=== PATIENT | female | born 1975 ===

== ENCOUNTER 2018-05-21 05:10 | Inpatient (IN) | payer OTHER ==
[2018-05-21] VITALS (12 sets, daily range): BP systolic 105–127; BP diastolic 60–85
[~2018-05-21] VITALS: Ht 157.5 cm; Wt 71.2 kg
[~2018-05-21 05:10] MED LIST: NKM
[2018-05-21] MEDS ORDERED: AMLODIPINE BES2.5 MG ORAL (06:14)
[2018-05-21] MEDS ORDERED: ZANTAC150 MG ORAL (06:14)
[2018-05-21] MEDS ORDERED: AMOXICILLIN500 MG ORAL (06:14)
[2018-05-21] MEDS ORDERED: SIMVASTATIN10 MG ORAL (06:14)
[2018-05-21] MEDS ORDERED: Lidocaine 1% MPF 10mg/ml 5ml ONE (06:33)
[2018-05-21] MEDS ORDERED: Midazolam 2mg/2ml Inj ONE (06:33)
[2018-05-21] MEDS ORDERED: fentaNYL 100 mcg/2 mL IV ONE (06:33)
[2018-05-21] MEDS ORDERED: Ketorolac 30mg Inj ONE (06:38)
[2018-05-21] MEDS ORDERED: Succinylcholine 20mg/ml 10ml vial ONE (06:50)
[2018-05-21] MEDS ORDERED: Zemuron 50mg/5ml Inj IV ONE (06:50)
[2018-05-21] MEDS ORDERED: Vancomycin 1gm inj IVPB ONE (06:57)
[2018-05-21] MEDS ORDERED: Thrombin 5000 units TOPIC ONE (06:58)
[2018-05-21] MEDS ORDERED: Bacitracin 50000 Units Vial ONE (06:58)
[2018-05-21] MEDS ORDERED: Gelfoam Size TOPIC ONE (06:58)
[2018-05-21] MEDS ORDERED: Bupivacaine w/Epi 0.5% 30ml Vial INJ ONE ×2 (06:58→08:07)
[2018-05-21] MEDS ORDERED: NS Irrig 1000ml ONE (07:00)
[2018-05-21] MEDS ORDERED: ceFAZolin sod 2 GM in D5W 110 ML IVPB ONE (07:00)
[2018-05-21] MEDS ORDERED: Sterile Water Irrig 1000ml IRRIG ONE (07:00)
[2018-05-21] MEDS ORDERED: Neostigmine 1mg/ml 10ml Inj ONE (07:00)
[2018-05-21] MEDS ORDERED: Propofol 1,000mg/ 100ml btl IV ONE (07:00)
[2018-05-21] MEDS ORDERED: LR 1000ml ONE (07:00)
--- NOTE | 2018-05-21 07:14 | Anethesia Preoperative Eval ---
Anesthesia Pre-op PMH/ROS General Date of Evaluation: May 21, 2018 Time of Evaluation: 07:11 Anesthesiologist: Lupillo ASA Score: ASA 2 Mallampati Score Class I : Soft palate, uvula, fauces, pillars visible Class II: Soft palate, uvula, fauces visible Class III: Soft palate, base of uvula visible Class IV: Only hard plate visible Mallampati Classification: Class II Surgeon: Migel Diagnosis: Lumbar radiculopathy Surgical Procedure: Lumbar laminotomy with decompression Anesthesia History: none Family History: no anesthesia problems Allergies: Coded Allergies: No Known Allergies (Unverified , 05/21/18) Patient NPO?: Yes NPO Date: May 20, 2018 NPO Time: 193 Past Medical History Cardiovascular: Reports: HTN; Denies: CAD, SC, valve dz, arrhythmia, other Pulmonary: Denies: asthma, COPD, CHERYL, other Gastrointestinal/Genitourinary: Reports: GERD - mild; Denies: CRI, ESRD, other Neurologic/Psychiatric: Reports: depression/anxiety; Denies: dementia, CVA, TIA, other Endocrine: Denies: DM, hypothyroidism, steroids, other HEENT: Denies: cataract (L), cataract (R), glaucoma, [place] (L), [place] (R), other Hematology/Immune: Denies: anemia, DVT, bleeding disorder, other Musculoskeletal/Integumentary: Denies: OA, RA, DJD, DDD, edema, other PMH Narrative: as above PSxH Narrative: T&A, excision of pituitary adenoma, hernia repair Anesthesia Pre-op Phys. Exam Physician Exam Last Vital Signs Date Time Temp Pulse Resp B/P (MAP) Pulse Ox O2 Delivery O2 Flow Rate FiO2 05/21/18 06:35 97.9 67 20 114/78 (90) 98 05/21/18 06:00 Room Air Constitutional: NAD Neurologic: CN 2-12 intact Cardiovascular: RRR, no M/R/G Respiratory: CTA Gastrointestinal: S/NT/ND Airway Exam Mallampati Score: Class II MO: full Neck: flexible ROM: full Teeth: missing Dentures: no upper, no lower Anesthesia Pre-op A/P Labs see chart Urine Test Test 05/21/18 05:30 Urine HCG, Qualitative Negative (NEGATIVE) Studies Pre-op Studies: EKG - NSR Risk Assessment & Plan Assessment: ASA 2 Plan: GA with ETT PONV prevention neuromonitoring Status Change Before Surgery: No Pre-Antibiotics Drug: Ancef 2gr. Given Within 1 Hr of Incision: Yes Time Given: 07:56 Bernadro Wesley MD May 21, 2018 07:14
--- NOTE | 2018-05-21 07:27 | Brief Operative Note ---
Immediate Post Operative Note Operative Note Chief Complaint: leg pain radicular and lbp Pre-op Diagnosis: L5S1 herniation Procedure: Left sided L5S1 microdiscectomy hemilaminotomy foraminotomy Post-op Diagnosis: same as pre-op Findings: consistent w/pre-op dx studies Surgeon: Migel Crate Repairer: Elliot Anesthesiologist: AMAURI Anesthesia: general Specimen: none Complications: none Condition: stable Fluids: IVF Estimated Blood Loss: minimal Drains: none Implant(s) used?: No Immanuel Lainez MD May 21, 2018 07:27
--- NOTE | 2018-05-21 07:27 | Pre-Procedure Note/Attestation ---
Pre-Procedure Note/Attestation Complete Prior to Procedure Planned Procedure: left Procedure Narrative: Left sided L5S1 microdiscectomy hemilaminotomy foraminotomy Indications for Procedure Pre-Operative Diagnosis: L5S1 herniation Attestation I attest that I discussed the nature of the procedure; its benefits; risks and complications; and alternatives (and the risks and benefits of such alternatives ), prior to the procedure, with the patient (or the patient's legal denial management representative). I attest that, if there was a reasonable possibility of needing a blood transfusion, the patient (or the patient's legal denial management representative) was given the [facility] standardized written summary, pursuant to the Topher Yudelka Blood Safety Act ([place] Health and Safety Code # 1645, as amended). I attest that I re-evaluated the patient just prior to the surgery and that there has been no change in the patient's H&P, except as documented below: Immanuel Lainez MD May 21, 2018 07:27
[2018-05-21] MEDS ORDERED: LR 1000ml 1,000 ML IVLG SCH (08:03)
[2018-05-21] MEDS ORDERED: Morphine Sulfate 10mg/ml Inj ONE (08:08)
[2018-05-21] MEDS ORDERED: Sodium Chloride 10ml vial INJ ONE (08:09)
[2018-05-21] MEDS ORDERED: Glycopyrrolate 0.2mg/ml 1ml Vial ONE (08:09)
[2018-05-21] MEDS ORDERED: DiphenhydrAMINE 50mg/ml Inj IVP PRN (08:15)
[2018-05-21] MEDS ORDERED: fentaNYL 100 mcg/2 mL IV PRN (08:15)
[2018-05-21] MEDS ORDERED: Midazolam 2mg/2ml Inj IVP PRN (08:15)
[2018-05-21] MEDS ORDERED: Meperidine 50mg/ml Inj(FOR RIGORS ONLY) IV PRN (08:15)
[2018-05-21] MEDS ORDERED: Acetaminophen (Non formulary) 100 ML IV ONE (08:15)
[2018-05-21] MEDS ORDERED: Metoclopramide 10mg/2ml Inj IVP PRN ×2 (08:15→11:00)
[2018-05-21] MEDS ORDERED: Ketorolac 30mg Inj IV PRN (08:15)
--- NOTE | 2018-05-21 09:01 | Immediate Post-Op Evaluation ---
Immediate Post-Op Evalulation Immediate Post-Op Evalulation Procedure: L5-S1 microdiscectomy with laminotomy and decompression Date of Evaluation: May 21, 2018 Time of Evaluation: 08:59 IV Fluids: 800 Blood Products: none Estimated Blood Loss: <50 Urinary Output: none Blood Pressure Systolic: 118 Blood Pressure Diastolic: 61 Pulse Rate: 88 Respiratory Rate: 20 O2 Sat by Pulse Oximetry: 99 Temperature (Fahrenheit): 97.6 Pain Score (1-10): 1 Nausea: No Vomiting: No Complications none Patient Status: reacts, patent, extubated, none Hydration Status: adequate Bernardo Wesley MD May 21, 2018 09:01
[2018-05-21] MEDS ORDERED: Morphine Sulfate 4mg/ml Inj (IV/IM USE ONLY) IV PRN ×2 (11:00)
[2018-05-21] MEDS ORDERED: HYDROmorphone 1mg/ml Carpuject IVP PRN (11:00)
[2018-05-21] MEDS ORDERED: HYDROcodone/Acetamin 7.5/325 tab ORAL PRN ×2 (11:00)
[2018-05-21] MEDS ORDERED: Milk of Magnesia 30ml Ud ORAL PRN (11:00)
[2018-05-21] MEDS ORDERED: Morphine Sulfate 2mg/ml Inj IV PRN (11:00)
[2018-05-21] MEDS ORDERED: Naloxone 0.4mg/ml Inj IVP PRN (11:00)
[2018-05-21] MEDS: NS w/KCl 20mEq 1,000 ML IV SCH ×2 (11:00→21:25)
[2018-05-21] MEDS ORDERED: Norco 5mg/325mg tab ORAL PRN (11:00)
[2018-05-21] MEDS: Dexamethasone 4mg/ml vial IVP SCH ×3 (11:48→23:42)
--- NOTE | 2018-05-21 11:53 | Diagnostic Imaging Report ---
INDICATION: Pain, intraoperative TECHNIQUE: Intraoperative imaging Fluoroscopy time: 4.9 seconds Total dose: 1.67 mGy Total number of images: One COMPARISON: None FINDINGS: Single crosstable lateral image demonstrates a localizer tool projected posterior to what is presumably the L5-S1 disc IMPRESSION: Intraoperative imaging, as described
[2018-05-21] MEDS ORDERED: Chloraseptic Spray 20mL Bottle ORAL PRN (12:00)
[2018-05-21] MEDS: ceFAZolin sod 1 GM in D5W 55 ML IV SCH ×2 (15:33→23:42)
--- NOTE | 2018-05-21 15:49 | General Progress Note ---
Assessment/Plan Assessment/Plan L5S1 herniation Left sided L5S1 microdiscectomy hemilaminotomy foraminotomy PLAN 1. incentive spirometry 2. SCD 3. PT evaluation and therapy 4. Hydration 5. Pain management 6. discharge once stable with outpatient follow up Subjective Allergies: Coded Allergies: No Known Allergies (Unverified , 05/21/18) Subjective asked to follow up postop Objective Last 24 Hour Vital Signs Date Time Temp Pulse Resp B/P (MAP) Pulse Ox O2 Delivery O2 Flow Rate FiO2 05/21/18 11:45 97.1 69 19 115/73 (87) 100 05/21/18 10:47 98.7 71 18 115/73 (87) 100 05/21/18 10:25 Nasal Cannula 3.0 Nasal Cannula 3.0 05/21/18 09:50 97.0 75 20 113/61 100 Nasal Cannula 3 05/21/18 09:26 76 20 118/60 100 Simple Mask 8 05/21/18 09:19 77 20 124/66 100 Simple Mask 8 05/21/18 09:15 81 20 119/65 100 Simple Mask 8 05/21/18 09:05 85 20 119/63 100 Simple Mask 8 05/21/18 09:01 88 20 99 05/21/18 08:57 101 20 118/61 100 Simple Mask 8 05/21/18 08:52 98.0 102 20 105/64 100 Simple Mask 8 05/21/18 06:35 97.9 67 20 114/78 (90) 98 05/21/18 06:00 Room Air Laboratory Tests 05/21/18 05:30: Urine HCG, Qualitative Negative Height (Feet): 5 Height (Inches): 2.00 Weight (Pounds): 157 Objective WDWN NAD clear breath sounds bilaterally without rhonchi or wheeze [id number] without MRG NABS nontender no HSM no CCE nonfocal Werner Carrion MD May 21, 2018 15:49
[2018-05-21] MEDS: Docusate 100mg cap ORAL SCH (17:36)
[2018-05-22] VITALS: BP 112/67
--- NOTE | 2018-05-22 02:15 | Operative Note - Dictated ---
DATE OF OPERATION: 05/21/2018 NOTE: "POOR AUDIO QUALITY/DISTORTED AUDIO" SURGEON: Immanuel Lainez MD, Orthopaedic Spine Surgeon. PAYROLL BENEFITS ADMINISTRATOR SURGEON: ANESTHESIA: General endotracheal anesthesia. PREOPERATIVE DIAGNOSES: 1. Intractable back pain. 2. Intractable leg pain. 3. Worsening radiculopathy. 4. Weakness. 5. Herniated nucleus pulposus, L5-S1 herniation. 6. Neural foraminal stenosis, L5-S1. POSTOPERATIVE DIAGNOSES: 1. Intractable back pain. 2. Intractable leg pain. 3. Worsening radiculopathy. 4. Weakness. 5. Herniated nucleus pulposus, L5-S1 herniation. 6. Neural foraminal stenosis, L5-S1. PROCEDURES PERFORMED: 1. Left-sided L5-S1 microdiscectomy. 2. L5-S1 hemilaminotomy, foraminotomy, and medial facetectomy. 3. L5-S1 neural foraminotomy through a transpedicular intraforaminal approach. 4. Use of intraoperative microscope. 5. Supervision and interpretation of intraoperative fluoroscopy. 6. Supervision and interpretation of somatosensory-evoked potential and free-running EMG monitoring. ESTIMATED BLOOD LOSS: Less than 100 mL. COMPLICATIONS: None. INDICATIONS FOR THE PROCEDURE: Amy has history of intractable back and neck pains which developed as a result of a recent impact which was well-documented on charts. The actual pains which she has had and developed have been a result of her impact directly despite the course of conservative measures. Amy Perez developed intractable pain while on November 25, 2015, she was at the walking around the , she slipped to the right side and landed firmly on her bottom and due to the impact, . She was afterwards assisted by a bystander . Amy presents for intractable back pain and radiculopathy. The patient tried and failed a prolonged course of conservative management, including but not limited to chiropractic therapy, physical therapy, nonsteroidal anti-inflammatory drugs, medication, ice packs as well as epidural injection. Despite these therapies, the patient still developed recalcitrant pain and elected for definitive management in the form of left-sided L5-S1 microdiscectomy, L5-S1 hemilaminotomy, foraminotomy, and medial facetectomy, and L5-S1 neural foraminotomy through a transpedicular intraforaminal approach. We had a long discussion with her regarding definitive surgical treatment options. The patient's MRI demonstrated herniated nucleus pulposus with L5-S1 herniation and neural foraminal stenosis at L5-S1 and as a result, I felt she would benefit from the discectomy as well as neural foraminotomy at this level. We had a long discussion with the patient regarding the risks, alternatives, and benefits of surgery. Our description of the risks included a discussion in person as well as a signed consent which detailed all pertinent risks and the procedure itself. Briefly, our discussion included but was not limited to infection, bleeding, pseudarthrosis, spinal cord injury, neurovascular injury, dural tear, CSF leak, neuropathy, paralysis, permanent weakness/drop foot, paresthesias blindness, palsy, and weakness. The patient understood there may be a need for revision surgery or additional procedures. Approach-related complications including dysphonia, dysphagia, blindness, permanent vocal cord and neural injury, hematoma, swallowing and breathing difficulty. Medical complications including liver, kidney, shock, and cardiopulmonary failure. Anesthesia complications including , swelling, damage to the musculature, larynx (voice injury or loss), esophagus (throat), trachea, blood vessels and muscles (muscular sprain) and lungs (pneumothorax) during this surgical procedure. Injury to deeper structures may be temporary or permanent. The patient understood these and elected to proceed. A written and verbal consent was given. We discussed the pros and cons of all the alternatives. We discussed the uncertainties associated with the decision. Afterwards, I assessed the patient's understanding and explored their preferences. All questions were answered and no guarantees were given. Medical clearance was obtained prior to surgery. PHYSICAL FINDINGS AND SURGICAL FINDINGS: There was a broad-based disk herniation noted at L5-S1 larger than it was appreciated on MRI. In fact, tear to the posterior longitudinal ligament posteriorly and as a result, the disk had to be carefully mobilized away from the neural elements as they were causing impingement on the neural elements themselves. DESCRIPTION OF PROCEDURE: Under the benefit of general endotracheal anesthesia and with the assistance of the entire operative team, the patient was moved from the rney onto the operative table in the prone position on a Reza frame. The head was secured and positioned appropriately. Bilateral arms were secured with Gel Pads and foam and all bony prominences were padded. The bilateral lower extremity SCD and LIZETH hose were placed for DVT prophylaxis. A surgical timeout was called which corroborated our planned procedure. Preoperative antibiotics were administered within 30 minutes of the incision for prophylaxis. Decadron was given for preoperative steroids. Using lateral radiography, the operative levels were delineated. An incision was marked based on our interpretation of lateral radiography and afterwards the body was prepped and draped in the usual sterile manner. The family was notified that we were ready to commence surgery and were called in the waiting room hourly for updates. An incision was based on our lateral fluoroscopic image to center the incision at the L5-S1 interspace. The wound was prepped and draped in the usual sterile fashion. Using a scalpel, a midline incision was taken down through the skin and subcutaneous tissues until the overlying hemilamina of L5-S1 were visualized. Next, using meticulous hemostasis, hemilamotomies were dissected and retractors were placed. Using a Pharr dental, we confirmed placement at the L5-S1 interspace. We next turned our attention to our decompression. A standard hemilaminotomy, foraminotomy, and medial facetectomy was performed at each level in standard fashion using a Midas-Camilo type AM8 drill bit, straight and angled curettage, and Kerrison 4 rongeurs until the lateral thecal sac margin and traversing nerve root was visualized. All remainders of the ligamentum flavum and lateral bony margins were resected in total with angled curettage and Kerrison 4 rongeurs until the lateral thecal sac margin and traversing nerve root was visualized and decompressed. We next turned our attention toward our L5-S1 microdiscectomy on the left side. A Catron 4 was used to gently mobilize the thecal sac medially and this was held retracted with a bayonetted nerve root retractor. It was at this point that we noted a large broad-based disc protrusion with encroachment dorsally on the thecal sac neural foraminal contents. A bayonet and nerve root retractor was then placed carefully to retract the thecal sac and a discectomy was performed using a combination of a long-handled #15 blade scalpel, downgoing and straight pituitaries, and downgoing curettage. Afterward, the disc space was irrigated twice with 20 mL of antibiotic-impregnated saline. All loose and free-floating disc fragments were carefully resected with a narrow pituitary. Having been satisfied with our decompression after our discectomy of all neural elements, we next turned our attention to our neural foraminoplasty/foraminotomy. This was performed through a transpedicular intraforaminal approach using an access probe followed by a neuro-check device, which confirmed ventral placement of our nerve root. Once we confirmed we were safe, we next turned our attention towards placement of our size #10 file under direct microscopic visualization and under lateral fluoroscopy. Using pre- and post-reciprocation imaging, we were able to visualize our direct decompression given the reciprocation allowed for re-creation of the neural foraminal arch at L5-S1. Afterwards, hemostasis was obtained with 60 mL of antibiotic-impregnated saline followed by FloSeal and Gelfoam. After sponge and needle count were found to be correct, next we turned our attention to closure. Closure consisted of 1-0 Vicryl in standard interrupted fashion. Zosyn was placed deep to the fascia and superficial to the fascia for antibiotic prophylaxis. Skin closure was performed with 2-0 Vicryl in interrupted fashion followed by a running Monocryl for the skin. Final dressings consisted of Dermabond for the superficial skin, Telfa, and Tegaderm. The patient tolerated the procedure well. The patient was extubated after the conclusion of surgery without incident. We discussed the findings of the surgery with the family upon completion of the case. At this point, the patient will be transferred to the spine floor for further observation. Immanuel Lainez M.D. DR: Stefany JOB#: [id number] CC:
[2018-05-22 04:00] VITALS: BP 97/60
[2018-05-22] MEDS: NS w/KCl 20mEq 1,000 ML IV SCH (07:04)
[2018-05-22] MEDS: ceFAZolin sod 1 GM in D5W 55 ML IV SCH (07:04)
[2018-05-22] MEDS: Dexamethasone 4mg/ml vial IVP SCH (07:04)
[2018-05-22 08:00] VITALS: BP 132/76
[2018-05-22] MEDS: Docusate 100mg cap ORAL SCH (08:35)
--- NOTE | 2018-05-22 09:02 | General Progress Note ---
Assessment/Plan Assessment/Plan L5S1 herniation Left sided L5S1 microdiscectomy hemilaminotomy foraminotomy PLAN 1. incentive spirometry 2. SCD 3. PT evaluation and therapy 4. Stable 5. dc home today and rx given Subjective Allergies: Coded Allergies: No Known Allergies (Unverified , 05/21/18) Subjective COMFORTABLE READY TO GO HOME Objective Last 24 Hour Vital Signs Date Time Temp Pulse Resp B/P (MAP) Pulse Ox O2 Delivery O2 Flow Rate FiO2 05/22/18 08:36 79 132/76 05/22/18 04:00 97.6 74 20 97/60 (72) 96 05/22/18 00:00 98.5 70 20 112/67 (82) 96 05/21/18 21:00 Nasal Cannula 3.0 Nasal Cannula 3.0 05/21/18 20:00 98.7 81 20 127/85 (99) 98 05/21/18 16:00 99.7 78 19 111/68 (82) 97 05/21/18 11:45 97.1 69 19 115/73 (87) 100 05/21/18 10:47 98.7 71 18 115/73 (87) 100 05/21/18 10:25 Nasal Cannula 3.0 Nasal Cannula 3.0 05/21/18 09:50 97.0 75 20 113/61 100 Nasal Cannula 3 05/21/18 09:26 76 20 118/60 100 Simple Mask 8 05/21/18 09:19 77 20 124/66 100 Simple Mask 8 05/21/18 09:15 81 20 119/65 100 Simple Mask 8 05/21/18 09:05 85 20 119/63 100 Simple Mask 8 Intake and Output 05/21/18 05/22/18 19:00 07:00 Intake Total 2345 ml Balance 2345 ml Intake Oral 590 ml IV Total 1755 ml # Voids 1 1 Height (Feet): 5 Height (Inches): 2.00 Weight (Pounds): 157 Objective WDWN NAD clear breath sounds bilaterally without rhonchi or wheeze [id number] without MRG NABS nontender no HSM no CCE nonfocal Werner Carrion MD May 22, 2018 09:02
[2018-05-22 12:00] VITALS: BP 123/82
[2018-05-22] MEDS ORDERED: Tubing IV Secondary IV ONE (12:04)
[2018-05-22 16:12] VITALS: BP 124/72
--- NOTE | 2018-05-22 16:12 | 48 Hour Post Anesthesia Eval ---
Post Anesthesia Evaluation Procedure: L5-S1 microdiscectomy with laminotomy and decompression Date of Evaluation: May 22, 2018 Time of Evaluation: 11:20 Blood Pressure Systolic: 124 0: 72 Pulse Rate: 68 Respiratory Rate: 20 Temperature (Fahrenheit): 97.6 O2 Sat by Pulse Oximetry: 98 Airway: patent Nausea: No Vomiting: No Pain Intensity: 2 Hydration Status: adequate Cardiopulmonary Status: stable Mental Status/LOC: patient returned to baseline Follow-up Care/Observations: n/a Post-Anesthesia Complications: none Follow-up care needed: ready to discharge Bernardo Wesley MD May 22, 2018 16:12
--- NOTE | 2018-05-22 22:00 | Discharge Summary ---
DATE OF ADMISSION: 05/21/2018 DATE OF DISCHARGE: 05/22/2018 PROCEDURE PERFORMED DURING ADMISSION: Microdiscectomy, L5-S1. REASON FOR ADMISSION: HOSPITAL COURSE/TREATMENT RENDERED: DISCHARGE PHYSICAL EXAMINATION: 1. The patient was ambulating with and without the assistance of physical therapy. 2. Prior to discharge home, incision was clean and dry with minimal swelling. 3. Follows commands. 4. Alert and oriented. 5. Adan discontinued, voiding. 6. Incentive spirometer at bedside. 7. IVF hep-locked. MOTOR: Demonstrates expected postoperative bulk and tone. Moves biceps, triceps, and deltoid musculature on command. Moves hip flexors, quadriceps, tibialis anterior, EHL, gastrocsoleus musculature on command as well. TREATMENT RENDERED: 1. Daily nursing care. 2. Physical therapy. 3. Occupational therapy. 4. Intravenous medications. 5. Oral medications. 6. Daily postoperative examinations by Spine Surgery team. CONDITION OF PATIENT ON DISCHARGE: The condition on discharge is stable for discharge to home. DISCHARGE INSTRUCTIONS: Our specific instructions relating to physical activity, medications, diet, and follow-up care are detailed in our standard operative folder and were given to this patient prior to surgery. We will however summarize these briefly as stated below. Regarding physical activity, we would like the patient to limit their flexion, extension, and rotation. We also require a limitation on their bending, lifting, and twisting. All medication has been called in prior to surgery to their pharmacy of choice. They can resume their regular diet once tolerated. We would like them to shower and limit soaking the wound in a tub/Jacuzzi/the ocean for a period of one month or until the incision is completely healed. We will have them follow up in our office in three weeks' time for their regularly scheduled appointment. They understand to call our office tomorrow to schedule the time for their three-week followup appointment. The patient will notify us should they experience any increase in the severity of pain, redness, swelling, or drainage from their incision. Immanuel Lainez M.D. DR: NAGA/ALEJANDRA JOB#: [id number] CC:
== END 2018-05-22 12:05 | disposition home or self-care (01) | DRG 520 ==
LOC: SDSOVERFLO 05:10 → 3E 09:47
PROC: 0SB40ZZ Excision of Lumbosacral Disc, Open Approach (ICD-10-PCS; principal; 2018-05-21 07:00)
PROC: 01NB0ZZ Release Lumbar Nerve, Open Approach (ICD-10-PCS; principal; 2018-05-21 07:00)
DX: M51.17 Intervertebral disc disorders with radiculopathy, lumbosacral region (principal); M48.07 Spinal stenosis, lumbosacral region; W01.0XXS Fall on same level from slipping, tripping and stumbling without subsequent striking against object, sequela; I10 Essential (primary) hypertension; K21.9 Gastro-esophageal reflux disease without esophagitis
CPT/HCPCS: 36415; 72020; 76000; 81025; 86850; 86900; 86901; 87081; 94003; 94150; 94760; J2250; J2405; J2710; J2765